=== PATIENT | male | born 1955 | race Caucasian/White ===

== ENCOUNTER 2019-08-09 18:22 | Emergency (ER) | payer OTHER ==
[~2019-08-09] VITALS: Ht 177.8 cm; Wt 107.0 kg
[2019-08-09] MEDS ORDERED: NORVASC 2.5 MG2.5 M1 PO (18:35)
[2019-08-09] MEDS ORDERED: LIPITOR10 MG PO (18:35)
[2019-08-09] MEDS ORDERED: PREDNISONE 10 M10 MG PO (20:33)
[2019-08-09 20:59] VITALS: BP 127/79
== END 2019-08-09 21:06 | disposition home or self-care (01) ==
LOC: M.ERS 18:22
DX: L50.9 Urticaria, unspecified (principal); T78.40XA Allergy, unspecified, initial encounter; I10 Essential (primary) hypertension; E78.5 Hyperlipidemia, unspecified; X58.XXXA Exposure to other specified factors, initial encounter